=== PATIENT | female | born 1960 | race Caucasian/White ===

== ENCOUNTER 2018-08-16 05:40 | Day surgery (SDC) | payer OTHER ==
[~2018-08-16] VITALS: Ht 172.7 cm; Wt 72.6 kg
[2018-08-16] MEDS ORDERED: CEFAZOLIN 2 GM IVPB PREMIX 50 ML IV ONE ×3 (06:45→13:00)
[2018-08-16] MEDS ORDERED: ONDANSETRON HCL 4 MG/2 ML VIAL IVP PRN ×2 (08:15→09:45)
[2018-08-16] MEDS ORDERED: KETOROLAC TROMETHAMINE 30 MG VIAL IVP PRN (08:15)
[2018-08-16] MEDS ORDERED: fentaNYL CITRATE/PF 100 MCG/2 ML AMP IVP PRN ×2 (08:15)
[2018-08-16] MEDS ORDERED: HYDROcodone/ACETAMIN 5-325 MG TAB (NORCO/ VICODIN) PO PRN (09:45)
[2018-08-16] MEDS ORDERED: OXYCODONE/ACETAMINOPHEN 5-325 TABLET PO PRN ×2 (09:45)
[2018-08-16] MEDS ORDERED: ROPIVACAINE 0.2% (NAROPIN) PF SOLUTION 100 ML BOTTLE ONE (10:00)
[2018-08-16] MEDS ORDERED: LR 1,000 ML IV.SOLN IV ONE (10:00)
[2018-08-16] MEDS ORDERED: MIDAZOLAM HCL 5 MG/ML VIAL (VERSED) IV ONE (10:00)
[2018-08-16] MEDS ORDERED: NS 1000 ML IV.SOLN IV ONE (10:00)
[2018-08-16] MEDS ORDERED: fentaNYL CITRATE/PF 100 MCG/2 ML AMP ONE ×2 (10:00→10:42)
[2018-08-16] MEDS ORDERED: PROPOFOL 200MG/ 20ML VIAL (DIPRIVAN) IV ONE ×2 (10:00)
[2018-08-16] MEDS ORDERED: BUPIVACAINE /PF 0.25% 30 ML VIAL INJ ONE (10:00)
[2018-08-16] MEDS ORDERED: NS IRRIG SOLN 1000 ML IR ONE (10:00)
[2018-08-16] MEDS ORDERED: ROCURONIUM BROMIDE 10 MG/ML (ZEMURON) ONE (10:00)
[2018-08-16] MEDS ORDERED: SEVOFLURANE 15 MIN GAS INH ONE (10:00)
[2018-08-16] MEDS ORDERED: PHENYLEPHRINE HCL 10 MG/ML VIAL (NEOSYNEPHRINE) ONE (10:00)
[2018-08-16] MEDS ORDERED: KETOROLAC TROMETHAMINE 30 MG VIAL ONE ×2 (10:00→11:12)
[2018-08-16] MEDS ORDERED: LIDOCAINE 2%, 20 ML MDV ONE (10:00)
[2018-08-16] MEDS ORDERED: DEXTROSE 50% JECT 50 ML DISP.SYRIN ONE (10:00)
[2018-08-16] MEDS ORDERED: DEXAMETHASONE SOD PHOSPHATE 4 MG/ML VIAL ONE (10:00)
[2018-08-16] MEDS ORDERED: NEOSTIGMINE METHYLSULFATE 1 MG/ML, 10 ML VIAL ONE (10:00)
[2018-08-16] MEDS ORDERED: ONDANSETRON HCL 4 MG/2 ML VIAL ONE ×2 (10:00)
[2018-08-16] MEDS ORDERED: BUPIVACAINE /PF 0.5% 30 ML VIAL ONE (10:00)
[2018-08-16] MEDS ORDERED: WATER FOR IRRIGATION,STERILE 1,000 ML IRRIG.SOLN IR ONE (10:00)
[2018-08-16] MEDS ORDERED: GLYCOPYRROLATE 0.2 MG/ML VIAL ONE (10:00)
[2018-08-16] MEDS ORDERED: FUROSEMIDE 20 MG/2 ML VIAL ONE (10:00)
[2018-08-16 11:35] VITALS: BP_SYST 136
[2018-08-16] MEDS ORDERED: OXYCODONE/ACETAMINOPHEN 5-325 TABLET ONE (12:00)
[2018-08-16] MEDS ORDERED: KETOROLAC TROMETHAMINE 30 MG VIAL IVP ONE (12:00)
[2018-08-16] MEDS ORDERED: SIMETHICONE 80 MG TAB.CHEW PO SCH (13:00)
== END 2018-08-16 15:10 | disposition home or self-care (01) ==
LOC: SMU 05:40 → SDS 05:40 → SMU 14:54 → SDS 15:10
PROVIDERS: ATTEND Specialist
DX: D25.9 Leiomyoma of uterus, unspecified (principal); N84.0 Polyp of corpus uteri; Z88.8 Allergy status to other drugs, medicaments and biological substances; Z79.899 Other long term (current) drug therapy; Z98.890 Other specified postprocedural states; N95.2 Postmenopausal atrophic vaginitis; I10 Essential (primary) hypertension; E03.9 Hypothyroidism, unspecified
CPT/HCPCS: 58552; 88307; C1727; J0690; J1100; J1885; J1940; J2001; J2250; J2370; J2405; J2704; J2710; J2795; J3010; J3490 ×3; J7030; J7120; E0190